=== PATIENT | female | born 1995 | race Caucasian/White ===

== ENCOUNTER 2022-08-31 05:25 | Inpatient (IN) | payer OTHER, SELFPAY ==
[2022-08-31] MEDS ORDERED: Morphine 4 MG/ML VIAL ONE ×2 (05:33→05:38)
[2022-08-31] MEDS ORDERED: Methylergonovine 0.2 MG/ML VIAL IM PRN (05:45)
[2022-08-31] MEDS ORDERED: Zolpidem Tartrate 5 MG TAB PO PRN (05:45)
[2022-08-31] MEDS ORDERED: Boostrix 0.5 ML (Tdap) VIAL (>/=7 yrs of age) IM ONE (05:45)
[2022-08-31] MEDS ORDERED: Bisacodyl 10 MG SUPP PR PRN (05:45)
[2022-08-31] MEDS ORDERED: Ondansetron PF 4 MG/2 ML Vial IVP PRN (05:45)
[2022-08-31] MEDS ORDERED: hydrALAZINE 20 MG/ML VIAL SLOW IVP PRN ×2 (05:45)
[2022-08-31] MEDS ORDERED: Milk Of Magnesia 30 ML UDCUP PO PRN (05:45)
[2022-08-31] MEDS ORDERED: NS w/ Oxytocin 30 units 500 ML IV SCH (05:45)
[2022-08-31] MEDS ORDERED: Promethazine HCl 25 MG/ML VIAL IM PRN (05:45)
[2022-08-31] MEDS ORDERED: Lactated Ringer's 1,000 ML IV SCH (05:45)
[2022-08-31 05:47] VITALS: BMI 39.1
[2022-08-31] MEDS ORDERED: Ampicillin/Sulbactam 3 GM in Sodium Chloride 0.9% 100 ML IVPB SCH (06:00)
[2022-08-31 06:30] LABS: Hemoglobin 11.8 g/dL (12.0-15.5); Mean Corpuscular HGB CONC 34.6 g/dL (32.0-36.0); Mean Corpuscular Hemoglobin 29.8 pg (27.0-33.0); Mean Corpuscular Volume 86.1 fl (81.6-98.3); Mean Platelet Volume 11.9 fl (7.4-10.4); Platelet Count 307 10x3/uL (150-450); Red Blood Cell (RBC) Count 3.96 10x6/uL (3.90-5.03); White Blood Cell (WBC) Count 19.9 10x3/uL (3.5-10.5)
[2022-08-31] MEDS ORDERED: Morphine 4 MG/ML VIAL SLOW IVP SCH (06:30)
[2022-08-31 06:34] LABS: HBSAg Index 0.12 S/CO (0-0.99); Hep B Surf Ag Non-Reactive S/CO (NonReactive)
[2022-08-31 06:39] LABS: Syphilis Antibody Nonreactive (Nonreactive); Syphilis Antibody Index 0.03 S/CO (<1.00 Non-Reactive)
[2022-08-31] MEDS: Ibuprofen 800 MG TAB PO SCH ×2 (07:54→17:03)
[2022-08-31] MEDS ORDERED: Prenatal Vitamin 1 TAB PO SCH (09:00)
[2022-08-31] MEDS ORDERED: Docusate 100 MG CAP PO SCH (09:00)
[2022-08-31 12:14] LABS: #Neutrophils 13.2 10x3/uL (1.5-8.4); %Basophils 0.1 % (0.0-2.0); %Eosinophils 0.1 % (0.0-6.0); %Neutrophils 83.1 % (40.0-75.0); Hemoglobin 9.5 g/dL (12.0-15.5); Mean Corpuscular HGB CONC 34.9 g/dL (32.0-36.0); Mean Corpuscular Hemoglobin 30.7 pg (27.0-33.0); Mean Platelet Volume 11.6 fl (7.4-10.4); Platelet Count 236 10x3/uL (150-450); RBC Distribution Width 13.1 % (11.5-14.5); Red Blood Cell (RBC) Count 3.09 10x6/uL (3.90-5.03); White Blood Cell (WBC) Count 15.9 10x3/uL (3.5-10.5)
[2022-08-31 15:42] LABS: Mean Corpuscular HGB CONC 34.2 g/dL (32.0-36.0); Mean Corpuscular Hemoglobin 30.5 pg (27.0-33.0); Mean Corpuscular Volume 89.2 fl (81.6-98.3); Mean Platelet Volume 11.5 fl (7.4-10.4); Platelet Count 251 10x3/uL (150-450); RBC Distribution Width 13.2 % (11.5-14.5); Red Blood Cell (RBC) Count 2.95 10x6/uL (3.90-5.03); White Blood Cell (WBC) Count 13.4 10x3/uL (3.5-10.5)
[2022-08-31] MEDS: Ferrous Sulfate 325 MG TAB PO SCH (18:45)
[2022-09-01] MEDS: Ibuprofen 800 MG TAB PO SCH ×3 (01:04→13:12)
[2022-09-01 09:28] VITALS: BP 101/59; TEMP 98
== END 2022-09-01 13:50 | disposition home or self-care (01) | DRG 769 ==
LOC: CSHLD 05:25
PROVIDERS: ADMIT Obstetrics & Gynecology; ATTEND Obstetrics & Gynecology
PROC: 10D17Z9 Manual Extraction of Products of Conception, Retained, Via Natural or Artificial Opening (ICD-10-PCS; principal; 2022-08-31)
PROC: 30233N1 Transfusion of Nonautologous Red Blood Cells into Peripheral Vein, Percutaneous Approach (ICD-10-PCS; 2022-09-01)
DX: O72.0 Third-stage hemorrhage (principal); F41.9 Anxiety disorder, unspecified; F32.A Depression, unspecified; J45.909 Unspecified asthma, uncomplicated; Z79.899 Other long term (current) drug therapy; Z91.040 Latex allergy status; Z88.2 Allergy status to sulfonamides; Z88.8 Allergy status to other drugs, medicaments and biological substances; O99.345 Other mental disorders complicating the puerperium; O99.53 Diseases of the respiratory system complicating the puerperium; O69.89X0 Labor and delivery complicated by other cord complications, not applicable or unspecified
CPT/HCPCS: 36415; 36430; 85014; 85018; 85027; 86780; 86850; 86900; 86901; 87340; 88307; J0295; J2210; J2270; J2590; J3490; J7120; P9016